=== PATIENT | female | born 1975 | race Caucasian/White ===

== ENCOUNTER → 2017-04-04 | Outpatient (CLI) | payer OTHER ==
--- NOTE | 2017-04-04 10:29 | KCIC ---
MR of the right knee Indication: Right knee pain and swelling anteriorly. Injury March 13. Technique: The standard multiplanar sequences are obtained. Findings: Medial meniscus: Degenerative tear. Medial subluxation from the joint. Lateral meniscus: Intact. Anterior cruciate ligament: Intact Posterior cruciate ligament: Intact Medial collateral ligament: Minimal fluid or bursitis deep to the superficial layer of the proximal medial collateral ligament. No rupture. Iliotibial band: Intact. Posterolateral structures: Fibular collateral ligament, biceps tendon and popliteus tendon are intact. Extensor mechanism: Intact. Fluid: Small joint effusion. Articular cartilage -patellofemoral joint: Mild chondromalacia at the patella and femoral trochlea. -medial compartment: Severe chondromalacia. -lateral compartment:Intact Bones: No significant lesion or acute fracture. Soft tissue: Unremarkable Impression: 1. Medial meniscal tear. 2. Mild fluid or bursitis at the proximal medial collateral ligament without through and through tear. 3. Primary osteoarthritis. Electronically signed by: Elgin Salcedo MD (04/04/2017 10:26 AM) [facility]
== END | disposition home or self-care (01) ==
LOC: KCIC MRI 07:48
PROVIDERS: ATTEND Nurse Practitioner Family
DX: S83.241A Other tear of medial meniscus, current injury, right knee, initial encounter (principal); M17.11 Unilateral primary osteoarthritis, right knee; X58.XXXA Exposure to other specified factors, initial encounter; Y93.89 Activity, other specified; Y92.89 Other specified places as the place of occurrence of the external cause; Y99.8 Other external cause status
CPT/HCPCS: 73721